=== PATIENT | female | born 1975 | race Caucasian/White ===

== ENCOUNTER → 2016-09-17 | Outpatient (CLI) | payer BC ==
[~2016-09-17] MED LIST: ALLEGRA ALLERG180 MG PO; NORCO 325 MG-51 TAB PO; TYLENOL 500MG500 MG PO
== END ==
LOC: MC.RAD 08:15
DX: N63 Unspecified lump in breast (principal); Z85.3 Personal history of malignant neoplasm of breast; Z90.11 Acquired absence of right breast and nipple

== ENCOUNTER → 2016-10-06 | Outpatient (CLI) | payer BC | LOC: MC.RAD 07:00 | DX: C50.412 Malignant neoplasm of upper-outer quadrant of left female breast (principal) ==

== ENCOUNTER → 2017-04-01 | Outpatient (CLI) | payer BC | LOC: MC.RAD 08:48 | DX: N63 Unspecified lump in breast (principal); Z85.3 Personal history of malignant neoplasm of breast; Z90.11 Acquired absence of right breast and nipple ==